=== PATIENT | male | born 1940 | race Caucasian/White ===

== ENCOUNTER 2023-10-03 15:44 | Emergency (ER) | payer MEDICARE ==
[2023-10-03 16:33] LABS: #Eosinphils 1.1 thou/uL (0.0-0.7); #Monocytes 0.9 thou/uL (0.11-0.59); #Neutrophils 4.8 thou/uL (1.40-6.50); %Basophils 0.5 % (0.0-1.0); %Eosinophils 13.4 % (0.0-10.0); %Lymphocytes 13.3 % (21.0-51.0); %Monocytes 11.9 % (0.0-10.0); %Neutrophils 60.8 % (42.0-75.0); Hematocrit 37.2 % (42.0-52.0); Hemoglobin 12.3 g/dL (14.0-18.0); Mean Corpuscular HGB CONC 33.1 g/dL (32.0-36.0); Mean Corpuscular Hemoglobin 31.9 pg (27.0-31.0); Mean Corpuscular Volume 96.4 fl (78.0-98.0); Mean Platelet Volume 10.4 fL (7.4-10.4); Platelet Count 160 10x3/uL (130-400); RBC Distribution Width 14.3 % (11.5-14.5); Red Blood Cell (RBC) Count 3.86 mill/uL (4.70-6.10); White Blood Cell (WBC) Count 7.9 10x3/uL (4.8-10.8)
[2023-10-03 16:52] LABS: ALT (SGPT) 13 U/L (8-55); AST (SGOT) 29 U/L (5-34); Albumin 3.3 g/dL (3.4-4.8); Alkaline Phosphatase 94 U/L (40-110); Anion Gap 11 mmol/L (10-20); BUN (Urea Nitrogen) 17 mg/dL (8.4-25.7); Bilirubin, Total 0.6 mg/dL (0.2-1.2); Calc. Creatinine Clearance 0 mL/min (70-130); Calcium 8.2 mg/dL (7.8-10.44); Carbon Dioxide 24 mmol/L (23-31); Chloride 105 mmol/L (98-107); Estimated GFR 59; Globulin 3.9 g/dL (2.4-3.5); Potassium 4.7 mmol/L (3.5-5.1); Protein, Total 7.2 g/dL (5.8-8.1); Sodium 135 mmol/L (136-145)
[2023-10-03 16:55] LABS: Troponin I 0.014 ng/mL (< 0.028)
[2023-10-03 16:56] LABS: Glucose 51 mg/dL (83-110)
[2023-10-03] MEDS ORDERED: Dextrose 10% in Water 250 ML ONE (16:59)
[2023-10-03] MEDS ORDERED: Ipratropium/Albuterol 3 ML NEB ONE (17:07)
[2023-10-03 17:13] LABS: Hemoglobin A1c 5.8 % (4.0-6.0)
[2023-10-03 17:33] LABS: Bacteria/HPF None Seen HPF (None Seen); Bilirubin Negative (Negative); Blood, Urine Negative (Negative); CAUTI Indications for Culture Pelvic or flank pain; Clarity Clear (Clear); Glucose, Urine (Dipstick) Normal (Negative); Ketone, Urine Negative (Negative); Leukocyte Negative Leu/uL (Negative); Nitrite Negative (Negative); Protein, Urine (Dipstick) Negative (Neg-Trace); RBC/HPF 0-3 HPF (0-3); Squamous Epithelial 0-3 HPF (0-3); Urobilinogen Normal mg/dL (Less than 2); WBC/HPF 0-3 HPF (0-3); pH, Urine 5.5 (5.0-9.0)
[2023-10-03 17:43] LABS: Urine Culture Reflex No No
[2023-10-03] MEDS ORDERED: Benzonatate 100 MG CAP ONE (19:05)
== END 2023-10-03 21:20 | disposition home or self-care (01) ==
LOC: ERS 15:44
DX: E11.649 Type 2 diabetes mellitus with hypoglycemia without coma (principal); R06.02 Shortness of breath; I10 Essential (primary) hypertension; Z87.891 Personal history of nicotine dependence
CPT/HCPCS: 36415; 36416; 71045; 80053; 81001; 83036; 83605; 83880; 84484; 85025; 94640; 96365; J7620